=== PATIENT | male | born 1985 ===

== ENCOUNTER 2017-10-02 14:51 | Emergency (ER) | payer OTHER ==
[2017-10-02 15:09] VITALS: BMI 29.1
--- NOTE | 2017-10-02 15:22 | C.PDOC ---
History Of Present Illness Patient presents to the ED with a complaint of lower abdominal pain that radiates to the lower back for the last 2 weeks. Patient reports feeling the sensation of having to urinate frequently and experiences pressure and discomfort when urinating however states its not burning. Patient also reports constipation, but has had bowel movements for the last 2 days. Denies nausea, vomiting, fever, or medications taken to alleviate symptoms. Time Seen by Provider: 10/02/17 15:15 Chief Complaint (Nursing): Abdominal Pain History Per: Patient History/Exam Limitations: no limitations Onset/Duration Of Symptoms: Days (2 weeks) Current Symptoms Are (Timing): Still Present Location Of Pain/Discomfort: Suprapubic, Other (lower abdominen) Radiation Of Pain To:: Back (lower) Associated Symptoms: Constipation (resolved as of the last two days), Urinary Symptoms. denies: Fever, Nausea, Vomiting Last Bowel Movement: Today Past Medical History Reviewed: Historical Data, Nursing Documentation, Vital Signs Vital Signs: Last Vital Signs Temp 98.7 F 10/02/17 16:14 Pulse 75 10/02/17 16:14 Resp 18 10/02/17 16:14 BP 123/66 10/02/17 16:14 Pulse Ox 99 10/03/17 17:25 - Medical History PMH: No Chronic Diseases Surgical History: No Surg Hx Family History: States: No Known Family Hx - Social History Hx Tobacco Use: No Hx Alcohol Use: Yes (occasional) Hx Substance Use: No - Immunization History Hx Tetanus Toxoid Vaccination: No Hx Influenza Vaccination: No Hx Pneumococcal Vaccination: No Review Of Systems Constitutional: Negative for: Fever Gastrointestinal: Positive for: Abdominal Pain, Constipation. Negative for: Nausea, Vomiting Genitourinary: Positive for: Dysuria, Frequency. Negative for: Scrotal Pain Skin: Negative for: Rash Neurological: Negative for: Headache, Dizziness Physical Exam - Physical Exam Appears: Well, Non-toxic, No Acute Distress Skin: Normal Color, Warm, Dry Head: Atraumatic, Normacephalic Eye(s): bilateral: Normal Inspection Neck: Normal ROM Chest: Symmetrical Cardiovascular: Rhythm Regular, No Murmur Respiratory: Normal Breath Sounds, No Rales, No Rhonchi, No Wheezing Gastrointestinal/Abdominal: Bowel Sounds (active), Soft, No Tenderness, No Distention, No Guarding Back: Normal Inspection, No CVA Tenderness, No Vertebral Tenderness, No Paraspinal Tenderness Male Genital: Normal Inspection, No Testicular Tenderness, No Testicular Swelling Extremity: Bilateral: Atraumatic, Normal Color And Temperature, Normal ROM Neurological/Psych: Oriented x3, Normal Speech Gait: Steady ED Course And Treatment - Laboratory Results Result Diagrams: 10/02/17 15:24 10/02/17 15:24 Lab Interpretation: No Acute Changes O2 Sat by Pulse Oximetry: 99 (room air) Pulse Ox Interpretation: Normal Medical Decision Making Medical Decision Making: Impression: urinary symptoms Plan: * GC test * UA * urine culture * labs * Toradol Labs and UA negative. Patient remains well and in no distress. I discussed results with patient and ask about STDS. Patient denies possibility of any STD, states he is happily and monogamous. Does not want STD treatments, cultures sent. Patient to be discharged. Will call with any positive cultures Disposition Counseled Patient/Family Regarding: Need For Followup, Rx Given - Disposition [facility]Outside[facility] [Outside] Disposition: HOME/ ROUTINE Disposition Time: 16:07 Condition: STABLE Additional Instructions: Tus laboratorios y tu orina whitney normales recibirs emiliano llamada con cualquier resultado de cultivo positivo Kirit un seguimiento con la clnica en 2-5 ibarra para emiliano evaluacin adicional. Regrese al departamento de emergencia en cualquier momento si los sntomas persisten o empeoran. Instructions: Dysuria (GEN) Forms: [employer] ([place] Islander) Print Language: COLOMBIAN - POA Present On Arrival: None - Clinical Impression Clinical Impression: Dysuria - Scribe Statement The provider has reviewed the documentation as recorded by the Scribe Alissa Gilmore All medical record entries made by the Scribe were at my direction and personally dictated by me. I have reviewed the chart and agree that the record accurately reflects my personal performance of the history, physical exam, medical decision making, and the department course for this patient. I have also personally directed, reviewed, and agree with the discharge instructions and disposition.
[2017-10-02 15:32] LABS: BASO % 0.6 % (0.0-2.0); EOS # 0.2 K/uL (0.0-0.7); LYMPH # 2.2 K/uL (1.0-4.3); MEAN PLATELET VOLUME 9.2 fL (7.2-11.7); MONO # 0.4 K/uL (0.0-0.8)
[2017-10-02 15:38] LABS: URINE BILIRUBIN NEGATIVE (NEGATIVE); URINE BLOOD NEGATIVE (NEGATIVE); URINE CLARITY Clear (Clear); URINE COLOR Colorless (YELLOW); URINE GLUCOSE (UA) NORMAL (Normal); URINE LEUKOCYTE ESTERASE NEG Leu/uL (Negative); URINE NITRATE NEGATIVE (NEGATIVE); URINE PROTEIN NEGATIVE (NEGATIVE); URINE UROBILINOGEN NORMAL mg/dL (0.2-1.0)
[2017-10-02 15:41] LABS: ALB/GLOB RATIO 1.3 (1.0-2.1); ALBUMIN 4.5 g/dL (3.5-5.0); ALT/SGPT 106 U/L (21-72); AST/SGOT 44 U/L (17-59); BLOOD UREA NITROGEN 13 mg/dL (9-20); CALCIUM 8.8 mg/dl (8.6-10.4); GFR AFRICAN-AMERICAN > 60; GFR NON-AFRICAN AMERICAN > 60; LIPASE 112 U/L (23-300)
[2017-10-02 15:53] LABS: EOS % 3.4 % (0.0-4.0); HEMOGLOBIN 14.9 g/dL (12.0-18.0); LYMPH % 37.9 % (20.0-40.0); MEAN CELL VOLUME 85.4 fL (80.0-94.0); MEAN CORPUSCULAR HEMOGLOBIN 30.9 pg (27.0-31.0); MEAN CORPUSCULAR HGB CONC 36.2 g/dL (33.0-37.0); MONO % 6.7 % (0.0-10.0); NEUT % 51.4 % (50.0-75.0); NRBC % 0.1 % (0.0-2.0); RBC 4.8 Mil/uL (4.40-5.90); RED CELL DISTRIBUTION WIDTH 12.8 % (11.5-14.5); WHITE BLOOD COUNT 5.9 K/uL (4.8-10.8)
[2017-10-02 16:15] VITALS: BP 123/66; PULSE 75; RESP 18; TEMP 98.7
[2017-10-03 17:25] VITALS: O2SAT 99
== END 2017-10-02 16:15 | disposition home or self-care (01) ==
LOC: C.ER 14:51
DX: R30.0 Dysuria (principal)
CPT/HCPCS: 80053; 81001; 83690; 85025; 87086; 87491; 87591; 96374; 99284; J1885

== ENCOUNTER 2017-11-13 15:42 | Emergency (ER) | payer OTHER, SELFPAY ==
[2017-11-13 15:42] VITALS: BMI 29.1
[2017-11-13 16:13] VITALS: BP 141/75; PULSE 78; RESP 18; TEMP 99.1; O2SAT 100
[2017-11-13] MEDS ORDERED: Naproxen 550 mg Tab PO STA (16:22)
--- NOTE | 2017-11-13 16:25 | C.PDOC ---
History Of Present Illness 32 year old male presents to the ER with complains of sore throat for the past week. The patient completed an antibiotic course (name unsure) with no improvement in his symptoms. Patient also complains of rhinorrhea and right ear pain. Denies any cough or fever. Patient has no other medical complaints. Time Seen by Provider: 11/13/17 16:16 Chief Complaint (Nursing): ENT Problem History Per: Patient History/Exam Limitations: no limitations Onset/Duration Of Symptoms: Days (one week) Current Symptoms Are (Timing): Still Present Location Of Pain: Ear(s) (right ear), Throat Associated Symptoms: Sore Throat. denies: Fever, Cough Ear Symptoms: Right: Ear Pain Past Medical History Reviewed: Historical Data, Nursing Documentation, Vital Signs Vital Signs: Last Vital Signs Temp 99.1 F 11/13/17 16:10 Pulse 78 11/13/17 16:10 Resp 18 11/13/17 16:10 BP 141/75 11/13/17 16:10 Pulse Ox 100 11/13/17 16:25 - Medical History PMH: No Chronic Diseases Surgical History: No Surg Hx Family History: States: No Known Family Hx - Social History Hx Tobacco Use: No Hx Alcohol Use: Yes (occasional) Hx Substance Use: No - Immunization History Hx Tetanus Toxoid Vaccination: No Hx Influenza Vaccination: No Hx Pneumococcal Vaccination: No Review Of Systems Except As Marked, All Systems Reviewed And Found Negative. Constitutional: Negative for: Fever ENT: Positive for: Ear Pain, Throat Pain Respiratory: Negative for: Cough Physical Exam - Physical Exam Appears: No Acute Distress Skin: Normal Color Head: Normacephalic Eye(s): bilateral: Normal Inspection Ear(s): Bilateral: Normal Nose: Normal Oral Mucosa: Moist Throat: Erythema (mild ), No Exudate, No Other (swelling) Neck: Normal, Supple Cardiovascular: Rhythm Regular Respiratory: Normal Breath Sounds ED Course And Treatment O2 Sat by Pulse Oximetry: 100 (RA) Pulse Ox Interpretation: Normal Progress Note: Patient given viscous lidocaine and naprosyn. Patient reports feeling better after medication and is stable for discharge home. Disposition Counseled Patient/Family Regarding: Diagnosis, Need For Followup, Rx Given - Disposition Referrals: [facility] [Outside] Disposition: HOME/ ROUTINE Disposition Time: 16:40 Condition: STABLE Additional Instructions: FOLLOW UP WITH YOUR DOCTOR/CLINIC IN 1-2 DAYS USE MEDICATIONS NEEDED DRINK PLENTY OF FLUIDS RETURN TO EMERGENCY ROOM IF SYMPTOMS WORSEN SEGUIMIENTO CON MENDIOLA MDICO / CLNICA EN 1-2 URENA USE MEDICAMENTOS SEGN SEA NECESARIO BEBER MUCHO LQUIDO REGRESE AL WINTER DE EMERGENCIA SI LOS SNTOMAS EMPEORAN Prescriptions: Lidocaine 2% Viscous 15 ml MM Q4 PRN #1 bottle PRN Reason: Pain Naproxen 375 mg PO BID PRN #20 tablet PRN Reason: pain Phenol/Glycerin [Chloraseptic Max Lawrence] 1 spray MM Q6 PRN #1 spray PRN Reason: THROAT PAIN Instructions: Viral Pharyngitis (DC) Forms: [employer] (French) Print Language: LATVIAN - Clinical Impression Clinical Impression: Viral upper respiratory illness, Viral pharyngitis - Scribe Statement The provider has reviewed the documentation as recorded by the Scribe (Morro Alvarez) Provider Attestation: All medical record entries made by the Scribe were at my direction and personally dictated by me. I have reviewed the chart and agree that the record accurately reflects my personal performance of the history, physical exam, medical decision making, and the department course for this patient. I have also personally directed, reviewed, and agree with the discharge instructions and disposition.
[2017-11-13] MEDS ORDERED: Naproxen 550 mg Tab PO ONE (16:29)
== END 2017-11-13 16:30 | disposition home or self-care (01) ==
LOC: C.ER 15:42
DX: J02.8 Acute pharyngitis due to other specified organisms (principal)